=== PATIENT | female | born 1995 | race Caucasian/White ===

== ENCOUNTER 2017-08-23 12:35 | Emergency (ER) | payer BC, OTHER ==
[~2017-08-23] VITALS: Ht 170.2 cm; Wt 73.5 kg
[2017-08-23 12:35] VITALS: Ht 170.2 cm; Wt 73.5 kg
[2017-08-23] MEDS ORDERED: ONDANSETRON INJ 2 MG/ML 2 ML VIAL IV STA (12:52)
[2017-08-23] MEDS ORDERED: SODIUM CHLORIDE 0.9% 1000ML 1,000 ML IV STA (12:52)
[2017-08-23] MEDS ORDERED: FENTANYL CITRATE INJ 50 MCG/1 ML 2 ML VIAL IV PRN (13:00)
[2017-08-23 13:19] LABS: BASO % 0.1 %; BASO ABS # 0.01 K/uL (0-0.2); EOS % 0.1 %; EOS ABS # 0.01 K/uL (0-0.5); HEMATOCRIT 41.2 % (37-47); HEMOGLOBIN 14.2 g/dL (12.0-16.0); IG# 0.04 K/uL (0.00-0.02); LYMPH % 6.1 %; LYMPH ABS # 0.73 K/uL (1.2-3.4); MEAN CELL VOLUME 92.8 fL (80-100); MEAN CORPUSCULAR HGB CONC 34.5 g/dl (32-36); MEAN PLATELET VOLUME 8.5 fL (7.4-10.4); MONO % 3.9 %; MONO ABS # 0.47 K/uL (0.11-0.59); NEUT % 89.5 %; NEUT ABS # 10.69 K/uL (1.4-6.5); PLATELET COUNT 268 K/uL (130-400); RED CELL DISTRIBUTION WIDTH CV 13.4 % (11.5-14.5); RED CELL DISTRIBUTION WIDTH SD 45.9 fL (36.4-46.3); WHITE BLOOD COUNT 11.95 K/uL (4.8-10.8)
[2017-08-23 13:36] LABS: ALBUMIN 3.3 gm/dl (3.4-5.0); ALT/SGPT 16 U/L (12-78); AST/SGOT 14 U/L (15-37); BLOOD UREA NITROGEN 9 mg/dl (7-18); CALCIUM 9.2 mg/dl (8.5-10.1); CARBON DIOXIDE 26 mmol/L (21-32); CREATININE 0.97 mg/dl (0.60-1.20); GLUCOSE 96 mg/dl (70-99); LIPASE 89 U/L (73-393); POTASSIUM 3.7 mmol/L (3.5-5.1); SODIUM 137 mmol/L (136-145)
[2017-08-23 13:41] LABS: ALKALINE PHOSPHATASE 70 U/L (45-117); MONOSPOT NEG (NEG)
--- NOTE | 2017-08-23 13:44 | DIAGNOSTIC IMAGING REPORT ---
ABDOMEN 2VIEW W/PA CHEST RTN CLINICAL HISTORY: epigastric pain pain COMPARISON STUDY: No previous studies for comparison. FINDINGS: The soft tissues, psoas shadows, renal outlines and intestinal gas pattern appear normal. There is no evidence for bowel obstruction. There is no evidence for free intraperitoneal air. No abnormal abdominal calcifications are seen. A frontal view of the chest was performed and is unremarkable. IMPRESSION: Normal study. The above report was generated using voice recognition software. It may contain grammatical, syntax or spelling errors. Electronically signed by: Ming Carter M.D. 08/23/2017 1:43 PM Dictated Date/Time: 08/23/2017 1:42 PM
--- NOTE | 2017-08-23 14:54 | DIAGNOSTIC IMAGING REPORT ---
ABDOMINAL ULTRASOUND, RIGHT UPPER QUADRANT HISTORY: Abdominal pain. COMPARISON: Abdominal series August 24, 2017 FINDINGS: Liver morphology is normal. A 1.2 cm echogenic hepatic lesion adjacent to the ryan hepatis likely reflects a hemangioma. There is no biliary ductal dilatation. The common bile duct measures 4 mm in caliber. The gallbladder is normal. There are no gallstones. There is no right hydronephrosis. Pancreas is unremarkable by sonography. IMPRESSION: 1. No gallstones or biliary ductal dilatation. 2. 1.2 cm echogenic hepatic lesion which favors a hemangioma. Electronically signed by: Maury Lewis M.D. 08/23/2017 2:53 PM Dictated Date/Time: 08/23/2017 2:52 PM
[2017-08-23] MEDS ORDERED: OPTIRAY 320 IV PRN (15:45)
--- NOTE | 2017-08-23 15:53 | DIAGNOSTIC IMAGING REPORT ---
ABD/PELVIS IV CONTRAST ONLY CT DOSE: 334.74 mGy.cm HISTORY: Pain. Nausea. upper pain TECHNIQUE: Multiaxial CT images of the abdomen and pelvis were performed following the use of intravenous contrast. A dose lowering technique was utilized adhering to the principles of ALARA. COMPARISON STUDY: None. FINDINGS: Minimal dependent basilar atelectasis. Liver enhances uniformly. 2.3 cm upper pole left renal cyst. Kidneys are negative for process. Multiple loops of small bowel with mild hyperemia of the bowel wall suggesting enteritis. Colon is negative for distention. The appendix is normal. Uterus is anteflexed. No significant free fluid within the pelvic cul-de-sac. Small bilateral ovarian follicular cysts all less than 8 mm. Bladder is midline. IMPRESSION: 1. Mild generalized small bowel enteritis. 2. Upper pole left renal cyst. 3. Otherwise negative study. The above report was generated using voice recognition software. It may contain grammatical, syntax or spelling errors. Electronically signed by: Ming Carter M.D. 08/23/2017 3:52 PM Dictated Date/Time: 08/23/2017 3:49 PM
[2017-08-23] MEDS ORDERED: OXYC1TAB3 PO (16:52)
[2017-08-23] MEDS ORDERED: ONDA4TAB10 SL (16:52)
[2017-08-23] MEDS ORDERED: PRLSR20 PO (16:52)
[2017-08-23 17:02] VITALS: BP 121/78; PULSE 89; TEMP 36.8; O2SAT 99
--- NOTE | 2017-08-23 17:12 | EMERGENCY ROOM VISIT NOTE ---
History Report prepared by Vikram: Edin Boateng Under the Supervision of: Dr. Power Tai D.O. First contact with patient: 12:38 Chief Complaint: ABDOMINAL PAIN Stated Complaint: ABDOMINAL PAIN History of Present Illness The patient is a 21 year old female who presents to the Emergency Room with complaints of constant epigastric abdominal pain beginning yesterday. She also complains of left lower back pain. She rates her pain as an 8/10 in severity. The patient was seen by [facility] yesterday and was diagnosed with a kidney infection by . She was discharged on an antibiotic. She had shoulder pain and heart palpitations last night, but these have since resolved. The patient's pain is worsened with deep breathing. Her most recent alcohol use a few days ago. She denies recent falls or trauma. The patient's LNMP was two weeks ago. She is sexually active. She denies chest pain, or SOB. The patient states that she has not been eating much recently. Source of History: patient Onset: Yesterday Position: abdomen (epigastric) Symptom Intensity: 8/10 Timing: constant Modifying Factors (Worsening): breathing (deep) Associated Symptoms: + back pain (left lower), No chest pain, No SOB Note: Positive: resolved shoulder pain & heart palpitations. Review of Systems See HPI for pertinent positives & negatives. A total of 10 systems reviewed and were otherwise negative. Past Medical & Surgical Medical Problems: (1) No Known Active Medical Problems Family History No pertinent family history stated. Social History Alcohol Use: occasionally Occupation Status: [employer] student Current/Historical Medications Scheduled Omeprazole (Prilosec), 20 MG PO DAILY Ondasetron Odt (Zofran Odt), 4 MG SL Q6H Scheduled PRN Oxycodone Immediate Rel Tab (Roxicodone Ir), 1 TAB PO Q4H PRN for Severe Pain Allergies Coded Allergies: No Known Allergies (Unverified , 08/23/17) Physical Exam Vital Signs Date Time Temp Pulse Resp B/P (MAP) Pulse Ox O2 Delivery O2 Flow Rate FiO2 08/23/17 17:02 36.8 89 18 121/78 99 08/23/17 16:50 89 18 121/78 99 Room Air 08/23/17 15:36 89 15 122/77 99 08/23/17 14:15 89 15 99 08/23/17 14:10 90 25 95 08/23/17 13:10 92 21 98 08/23/17 13:05 91 19 100 08/23/17 13:01 120/72 08/23/17 12:44 100 08/23/17 12:42 132/78 08/23/17 12:35 36.8 104 18 132/78 99 Room Air 08/23/17 12:35 36.8 104 18 132/78 99 Room Air Physical Exam GENERAL: Patient is awake, and alert. Appears somewhat anxious and uncomfortable. EYES: The conjunctivae are clear. The pupils are round and reactive. EARS, NOSE, MOUTH AND THROAT: The nose is without any evidence of any deformity. Mucous membranes are moist tongue is midline NECK: The neck is nontender and supple. RESPIRATORY: Normal respiratory effort is noted there is no evidence of wheezing rhonchi or rales CARDIOVASCULAR: Regular rate and rhythm noted there no murmurs rubs or gallops normal S1 normal S2 GASTROINTESTINAL: Soft with significant epigastric and RUQ tenderness to palpation. No guarding or ridigity. BACK: No midline tenderness or or step-off noted range of motion in flexion extension as well as rotation no signs of muscle spasm noted MUSCULOSKELETAL/EXTREMITIES: There is no evidence of gross deformity full range of motion is noted in the hips and shoulders SKIN: There is no obvious evidence of any rash. There are no petechiae, pallor or cyanosis noted. NEUROLOGIC: Patient is awake alert and oriented x3 strength is symmetric patellar reflexes are 2+ bilaterally Medical Decision & Procedures ER Provider Diagnostic Interpretation: Radiology results as stated below per my review and radiologist interpretation: ABDOMINAL ULTRASOUND, RIGHT UPPER QUADRANT FINDINGS: Liver morphology is normal. A 1.2 cm echogenic hepatic lesion adjacent to the ryan hepatis likely reflects a hemangioma. There is no biliary ductal dilatation. The common bile duct measures 4 mm in caliber. The gallbladder is normal. There are no gallstones. There is no right hydronephrosis. Pancreas is unremarkable by sonography. IMPRESSION: 1. No gallstones or biliary ductal dilatation. 2. 1.2 cm echogenic hepatic lesion which favors a hemangioma. Electronically signed by: Maury Lewis M.D. 08/23/2017 2:53 PM ABDOMEN 2VIEW W/PA CHEST RTN FINDINGS: The soft tissues, psoas shadows, renal outlines and intestinal gas pattern appear normal. There is no evidence for bowel obstruction. There is no evidence for free intraperitoneal air. No abnormal abdominal calcifications are seen. A frontal view of the chest was performed and is unremarkable. IMPRESSION: Normal study. The above report was generated using voice recognition software. It may contain grammatical, syntax or spelling errors. Electronically signed by: Ming Carter M.D. 08/23/2017 1:43 PM ABD/PELVIS IV CONTRAST ONLY FINDINGS: Minimal dependent basilar atelectasis. Liver enhances uniformly. 2.3 cm upper pole left renal cyst. Kidneys are negative for process. Multiple loops of small bowel with mild hyperemia of the bowel wall suggesting enteritis. Colon is negative for distention. The appendix is normal. Uterus is anteflexed. No significant free fluid within the pelvic cul-de-sac. Small bilateral ovarian follicular cysts all less than 8 mm. Bladder is midline. IMPRESSION: 1. Mild generalized small bowel enteritis. 2. Upper pole left renal cyst. 3. Otherwise negative study. The above report was generated using voice recognition software. It may contain grammatical, syntax or spelling errors. Electronically signed by: Mnig Carter M.D. 08/23/2017 3:52 PM Laboratory Results 08/23/17 13:10 Red Blood Count 4.44, Mean Corpuscular Volume 92.8, Mean Corpuscular Hemoglobin 32.0, Mean Corpuscular Hemoglobin Concent 34.5, Mean Platelet Volume 8.5, Neutrophils (%) (Auto) 89.5, Lymphocytes (%) (Auto) 6.1, Monocytes (%) (Auto) 3.9, Eosinophils (%) (Auto) 0.1, Basophils (%) (Auto) 0.1, Neutrophils # (Auto) 10.69, Lymphocytes # (Auto) 0.73, Monocytes # (Auto) 0.47, Eosinophils # (Auto) 0.01, Basophils # (Auto) 0.01 08/23/17 13:10 Test 08/23/17 13:10 08/23/17 15:43 White Blood Count 11.95 K/uL (4.8-10.8) Red Blood Count 4.44 M/uL (4.2-5.4) Hemoglobin 14.2 g/dL (12.0-16.0) Hematocrit 41.2 % (37-47) Mean Corpuscular Volume 92.8 fL (80-100) Mean Corpuscular Hemoglobin 32.0 pg (25-34) Mean Corpuscular Hemoglobin Concent 34.5 g/dl (32-36) Platelet Count 268 K/uL (130-400) Mean Platelet Volume 8.5 fL (7.4-10.4) Neutrophils (%) (Auto) 89.5 % Lymphocytes (%) (Auto) 6.1 % Monocytes (%) (Auto) 3.9 % Eosinophils (%) (Auto) 0.1 % Basophils (%) (Auto) 0.1 % Neutrophils # (Auto) 10.69 K/uL (1.4-6.5) Lymphocytes # (Auto) 0.73 K/uL (1.2-3.4) Monocytes # (Auto) 0.47 K/uL (0.11-0.59) Eosinophils # (Auto) 0.01 K/uL (0-0.5) Basophils # (Auto) 0.01 K/uL (0-0.2) RDW Standard Deviation 45.9 fL (36.4-46.3) RDW Coefficient of Variation 13.4 % (11.5-14.5) Immature Granulocyte % (Auto) 0.3 % Immature Granulocyte # (Auto) 0.04 K/uL (0.00-0.02) Anion Gap 6.0 mmol/L (3-11) Est Creatinine Clear Calc Drug Dose 88.5 ml/min Estimated GFR () 96.1 Estimated GFR (Non- 82.9 BUN/Creatinine Ratio 9.6 (10-20) Calcium Level 9.2 mg/dl (8.5-10.1) Total Bilirubin 0.7 mg/dl (0.2-1) Direct Bilirubin 0.1 mg/dl (0-0.2) Aspartate Amino Transf (AST/SGOT) 14 U/L (15-37) Alanine Aminotransferase (ALT/SGPT) 16 U/L (12-78) Alkaline Phosphatase 70 U/L (45-117) Troponin I < 0.015 ng/ml (0-0.045) Total Protein 8.0 gm/dl (6.4-8.2) Albumin 3.3 gm/dl (3.4-5.0) Lipase 89 U/L (73-393) Human Chorionic Gonadotropin, Qual NEG (NEG) Monoscreen NEG (NEG) Urine Color ORANGE Urine Appearance SLIGHTLY CLOUDY (CLEAR) Urine pH (4.5-7.5) Urine Specific [place] 1.015 (1.000-1.030) Urine Protein (NEG) Urine Glucose (UA) (NEG) Urine Ketones (NEG) Urine Occult Blood (NEG) Urine Nitrite (NEG) Urine Bilirubin (NEG) Urine Urobilinogen (NEG) Urine Leukocyte Esterase (NEG) Urine RBC 10-30 /hpf (0-4) Urine WBC >30 /hpf (0-5) Urine Epithelial Cells >30 /lpf (0-5) Urine Bacteria 1+ (NEG) Laboratory results per my review. Medications Administered Medications (Trade) Dose Ordered Sig/Lui Route Start Time Stop Time Status Last Admin Dose Admin Ondansetron HCl (Zofran Inj) 4 mg NOW STAT IV 08/23/17 12:52 08/23/17 12:55 DC 08/23/17 13:22 4 MG Sodium Chloride 1,000 ml @ 999 mls/hr Q1H1M STAT IV 08/23/17 12:52 08/23/17 13:52 DC 08/23/17 13:22 999 MLS/HR Fentanyl Citrate (Fentanyl Inj) 50 mcg Q30M PRN IV 08/23/17 13:00 08/23/17 18:10 DC 08/23/17 13:23 50 MCG ECG Per My Interpretation Indication: abdominal pain, back/shoulder pain Rate (beats per minute): 85 Rhythm: normal sinus Findings: no ectopy, other (No acute ST segments) Comparison ECG Date: no prior available ED Course 1247: The patient was evaluated in room A11B. A complete history and physical examination were performed. 1252: Ordered NSS 1,000 ml @ 999 mls/hr IV, Zofran Inj 4 mg IV. 1300: Ordered Fentanyl Inj 50 mcg IV. 1538: I updated the patient on her test results. She agreed to abdominal CT. 1650: Upon reevaluation, the patient is resting comfortably. Her family has arrived. I discussed the results and treatment plan with her. She verbalized agreement of the treatment plan. The patient was discharged home. Medical Decision Differential diagnosis: Etiologies such as appendicitis, diverticulitis, PUD, biliary pathology, UTI, pancreatitis, obstruction, mesenteric ischemia, aortic pathology, infections, inflammatory bowel disease, renal colic, as well as others were entertained. Nursing notes reviewed. The patient is a 21-year-old female who presented to the emergency department for an evaluation of upper abdominal pain. The patient had very significant upper abdominal pain and was found to have an elevated white blood cell count. The patient initially had x-rays as well as ultrasound to evaluate the cause of her symptoms. There is no definite cause found and because of her elevated white blood cell count a CT the abdomen and pelvis was obtained. I discussed the patient's laboratory and radiographic studies with her. She was treated with IV fluids IV pain medicine and IV anti-emetics in the emergency department. On subsequent reevaluation she was feeling much better. The patient was started on an antibiotic as an outpatient and has taken 2 doses. She was started on Levaquin. I feel this would be sufficient to treat urinary tract infection but the urine was sent for culture. She was encouraged to follow-up with her primary care physician for reevaluation. She was also encouraged to drink plenty clear liquids and continue all medications as prescribed. Otherwise she was encouraged to return to the emergency department immediately if symptoms change worsen or the need arises. Medication Reconcilliation Current Medication List: was personally reviewed by me Blood Pressure Screening Patient's blood pressure: Normal blood pressure Blood pressure disposition: Did not require urgent referral Impression Primary Impression: Epigastric abdominal pain Additional Impression: UTI (urinary tract infection) Scribe Attestation The scribe's documentation has been prepared under my direction and personally reviewed by me in its entirety. I confirm that the note above accurately reflects all work, treatment, procedures, and medical decision making performed by me. Departure Information Dispostion Home / Self-Care Prescriptions Omeprazole (PRILOSEC) 20 Mg Capcr 20 MG PO DAILY, #30 CAP Prov: Power Tai, 08/23/17 Ondasetron Odt (ZOFRAN ODT) 4 Mg Tab 4 MG SL Q6H for Nausea, #15 TAB Prov: Power Tai, 08/23/17 Oxycodone Immediate Rel Tab (ROXICODONE IR) 5 Mg Tab 1 TAB PO Q4H Y for Severe Pain, #10 TAB Prov: Power Tai, 4/27/18 Forms HOME CARE DOCUMENTATION FORM, IMPORTANT VISIT INFORMATION Patient Instructions Abdominal Pain, My [facility], Urinary Tract Infecs Women Additional Instructions Continue all medications as prescribed. Follow-up with [facility] next week for reevaluation. You may require further studies or possibly a referral to a paper baling machine operator to further evaluate the cause your pain. Return to the emergency department immediately if symptoms change worsen or the need arises. Continue using Motrin and Tylenol as directed for mild pain. Consider using Maalox or Mylanta as directed for symptomatically. Problem Qualifiers Additional Impression: UTI (urinary tract infection) Urinary tract infection type: site unspecified Hematuria presence: with hematuria Qualified Codes: N39.0 - Urinary tract infection, site not specified ; R31.9 - Hematuria, unspecified
== END 2017-08-23 17:03 | disposition home or self-care (01) ==
LOC: C.EDC 12:38
DX: R10.13 Epigastric pain (principal); N39.0 Urinary tract infection, site not specified; R31.9 Hematuria, unspecified